=== PATIENT | female | born 1995 | race African-American/Black ===

== ENCOUNTER 2019-01-27 17:36 | Emergency (ER) | payer MEDICAID ==
[~2019-01-27] VITALS: Ht 170.2 cm; Wt 63.0 kg
[2019-01-27 20:26] VITALS: BP 118/72
== END 2019-01-27 20:28 | disposition home or self-care (01) ==
LOC: ER 17:36
DX: R19.7 Diarrhea, unspecified (principal); J45.909 Unspecified asthma, uncomplicated; Z91.013 Allergy to seafood
CPT/HCPCS: 99281

== ENCOUNTER 2020-08-07 21:56 | Emergency (ER) | payer MEDICAID ==
[~2020-08-07] VITALS: Ht 170.2 cm; Wt 61.0 kg
[2020-08-07 22:35] VITALS: BP 120/62
== END 2020-08-07 23:24 | disposition left against medical advice (07) ==
LOC: ER 21:56
DX: Z53.21 Procedure and treatment not carried out due to patient leaving prior to being seen by health care provider (principal); J45.909 Unspecified asthma, uncomplicated; Z91.013 Allergy to seafood
CPT/HCPCS: 93005